=== PATIENT | female | born 1985 | race American Indian/Alaskan Native ===

== ENCOUNTER 2017-07-09 21:49 | Inpatient (IN) | payer MEDICAID ==
--- NOTE | 2017-07-09 22:30 | C.PDOC ---
History Of Present Illness Patient was brought by S after she was caught shop lifting at the mall. Patient currently states she wants to hurt herself but has no plan. Denies any physical complaints. Time Seen by Provider: 07/09/17 22:29 Chief Complaint (Nursing): Psychiatric Evaluation History Per: Patient History/Exam Limitations: no limitations Onset/Duration Of Symptoms: Hrs Current Symptoms Are (Timing): Still Present Suicide/Self Injury Attempted (Context): None Modifying Factor(s): None Severity: None Associated Symptoms: Suicidal Thoughts. denies: Suicidal Plan Involuntary Hold By: None Recent travel outside of the [place]: No Additional History Per: Patient, EMS Past Medical History Reviewed: Historical Data, Nursing Documentation, Vital Signs Vital Signs: Last Vital Signs Temp 98.8 F 07/09/17 22:08 Pulse 90 07/09/17 22:08 Resp 20 07/09/17 22:08 BP 102/57 L 07/09/17 22:08 Pulse Ox 100 07/09/17 23:17 - Medical History PMH: Anxiety, Asthma, Bipolar Disorder, Bronchitis, Depression Surgical History: No Surg Hx Family History: States: No Known Family Hx - Social History Hx Tobacco Use: Yes Hx Alcohol Use: No Hx Substance Use: No - Immunization History Hx Tetanus Toxoid Vaccination: No Hx Influenza Vaccination: Yes Hx Pneumococcal Vaccination: No Review Of Systems Constitutional: Negative for: Fever Eyes: Negative for: Vision Change ENT: Negative for: Throat Pain Cardiovascular: Negative for: Chest Pain Respiratory: Negative for: Shortness of Breath Gastrointestinal: Negative for: Nausea Musculoskeletal: Negative for: Back Pain Skin: Negative for: Rash Neurological: Negative for: Weakness, Numbness Psych: Positive for: Depression, Suicidal ideation Physical Exam - Physical Exam Appears: Non-toxic, No Acute Distress Skin: Warm, Dry Head: Normacephalic Eye(s): bilateral: Normal Inspection Oral Mucosa: Moist Neck: Supple Chest: Symmetrical, No Tenderness Cardiovascular: Rhythm Regular Respiratory: No Rales, No Rhonchi Gastrointestinal/Abdominal: Soft, No Tenderness Back: No CVA Tenderness Extremity: Normal ROM Extremity: Bilateral: Atraumatic Neurological/Psych: Oriented x3, Normal Speech, Normal Cognition Gait: Steady ED Course And Treatment - Laboratory Results Result Diagrams: 07/09/17 22:38 07/09/17 22:38 O2 Sat by Pulse Oximetry: 100 (RA) Pulse Ox Interpretation: Normal Progress Note: Administered Macrobid. Ordered blood work and urinalysis. Crisis notified. Disposition Discussed With Dr.: Jasmeet Caraballo Comment: accepted the pt on his service and took over the care at 12:36 AM Doctor Will See Patient In The: Hospital Counseled Patient/Family Regarding: Studies Performed, Diagnosis - Disposition Disposition: HOSPITALIZED Disposition Time: 22:30 Condition: FAIR Forms: [facility] ([place]i) - POA Present On Arrival: None - Clinical Impression Clinical Impression: Alcohol abuse, Major depression, Cocaine abuse - Scribe Statement The provider has reviewed the documentation as recorded by the Scribe Larisa Gonzalez All medical record entries made by the Scribe were at my direction and personally dictated by me. I have reviewed the chart and agree that the record accurately reflects my personal performance of the history, physical exam, medical decision making, and the department course for this patient. I have also personally directed, reviewed, and agree with the discharge instructions and disposition. Decision To Admit - Pt Status Changed To: Hospital Disposition Of: Inpatient - Admit Certification Admit to Inpatient:: After my assessment, the patient will require hospitalization for at least two midnights. This is because of the severity of symptoms shown, intensity of services needed, and/or the medical risk in this patient being treated as an outpatient. - InPatient: Physician Admission Certification: I certify that this patient requires 2 or more midnights of care for the following reason:: After my assessment, the patient will require hospitalization for at least two midnights. This is because of the severity of symptoms shown, intensity of services needed, and/or the medical risk in this patient being treated as an outpatient. - . Bed Request Type: Psychiatry Admitting Physician: Jasmeet Caraballo Patient Diagnosis: Alcohol abuse, Major depression, Cocaine abuse
[2017-07-09 22:45] LABS: BASO # 0.1 K/uL (0.0-0.2); BASO % 0.7 % (0.0-2.0); EOS # 0.2 K/uL (0.0-0.7); EOS % 2.4 % (0.0-4.0); HEMOGLOBIN 11.7 g/dL (11.0-16.0); LYMPH # 3.2 K/uL (1.0-4.3); LYMPH % 40.8 % (20.0-40.0); MEAN CORPUSCULAR HEMOGLOBIN 27.2 pg (27.0-31.0); MONO # 0.7 K/uL (0.0-0.8); MONO % 8.8 % (0.0-10.0); NEUT # 3.7 K/uL (1.8-7.0); NEUT % 47.3 % (50.0-75.0); RBC 4.32 Mil/uL (3.80-5.20); RED CELL DISTRIBUTION WIDTH 13.4 % (11.5-14.5); WHITE BLOOD COUNT 7.8 K/uL (4.8-10.8)
[2017-07-09 22:49] LABS: HCG,QUALITATIVE URINE NEGATIVE (NEGATIVE)
[2017-07-09 22:55] LABS: SQUAMOUS EPITHIAL 19 /hpf (0-5); URINE BACTERIA FEW (<OCC); URINE BILIRUBIN NEGATIVE (NEGATIVE); URINE BLOOD 1+ (NEGATIVE); URINE CLARITY Hazy (Clear); URINE COLOR Yellow (YELLOW); URINE GLUCOSE (UA) NORMAL (Normal); URINE LEUKOCYTE ESTERASE 3+ Leu/uL (Negative); URINE NITRATE NEGATIVE (NEGATIVE); URINE PROTEIN 1+ mg/dL (NEGATIVE); WBC CLUMPS FEW /hpf
[2017-07-09 22:56] LABS: ALB/GLOB RATIO 1.1 (1.0-2.1); ALBUMIN 3.8 g/dL (3.5-5.0); ALT/SGPT 159 U/L (9-52); AST/SGOT 106 U/L (14-36); BLOOD UREA NITROGEN 17 mg/dL (7-17); GFR AFRICAN-AMERICAN > 60; GFR NON-AFRICAN AMERICAN > 60
[2017-07-09 23:07] LABS: BARBITURATES, UR NEGATIVE (NEGATIVE); PHENCYCLIDINE, UR NEGATIVE (NEGATIVE)
[2017-07-09 23:29] LABS: BENZODIAZEPINES, UR POSITIVE (NEGATIVE); OPIATES, UR POSITIVE (NEGATIVE)
[2017-07-10 02:05] VITALS: BP 103/66; PULSE 75; RESP 18; TEMP 98.3; O2SAT 100
--- NOTE | 2017-07-10 02:32 | PCM.BM ---
<Sami Valerio - Last Filed: 07/10/17 02:29> Treatment Plan Problems - Problems identified on initial assessmt Depression Date Initiated: 07/10/17 Time Initiated: 02:10 Assessment reference: NA Status: Active Suicidal Ideation Date Initiated: 07/10/17 Time Initiated: 02:10 Assessment reference: NA Status: Active Substance Abuse Date Initiated: 07/10/17 Time Initiated: 02:10 Assessment reference: NA Status: Active Treatment assets and liabiliti Patient Assests: cooperative, self-reliant, ADL independent, negotiates basic needs Patient Liabilities: financial problems, poor support system, substance abuse, legal issue - Milieu Protocol Maintain good personal hygiene: daily Encourage regular showers, daily Remind patient to perform daily oral care, daily Assist patient to perform ADL's Maintain personal safety: every shift Educate patient to report safety concerns to staff, every shift Monitor environment for contraband/sharps Medication safety: Monitor for expected outcome, potential side effects: every shift, Assess barriers to learning: every shift, Assess readiness for medication education: every shift <Shekhar Ghosh - Last Filed: 07/11/17 11:00> - Diagnosis (1) Major depression Status: Acute Interventions: 07/11/17 11:01 * Assess/adjust medications daily and /or as needed * See patient on an individual basis 7x/week to assess symptoms of depression * Monitor for side effects & effectiveness of medications * (2) Alcohol abuse Status: Acute Interventions: 07/11/17 11:01 * Assess 7x/week regarding severity of withdrawal * Educate regarding risks, benefits, side effects and alternatives of medications * Use Motivational Interviewing for abstinence * Use CBT for relapse prevention * Medication management for withdrawal symptoms * Encourage medication assisted treatment * (3) Cocaine abuse Status: Acute Interventions: 07/11/17 11:01 * Assess 7x/week regarding severity of withdrawal * Educate regarding risks, benefits, side effects and alternatives of medications * Use Motivational Interviewing for abstinence * Use CBT for relapse prevention * Medication management for withdrawal symptoms * Encourage medication assisted treatment * <Raquel Finley - Last Filed: 07/11/17 11:06> Family Contact Family involvement: Family/SO is involved - Goals for Treatment Patient goals for treatment: "I want to go home." Discharge/Continuing Care - Education Needs Education Needs: Patient Medication, Patient Coping Skills, Patient Placement options, Patient Community resources - Discharge Discharge Criteria: Tolerates medication w/o severe side effects, Reduction of target symptoms Discharge to:: Home, With Family - Treatment Team Participation Discussed with Family/SO: No Was Patient/Family/SO present at Treatment Team Meeting: No
--- NOTE | 2017-07-10 10:25 | PCM.PSYCH ---
Initial Psychiatric Evaluation - Initial Psychiatric Evaluation Type of Admission: Voluntary Legal Status: Capacity Chief Complaint (in patient's own words): I was feeling depressed and suicidal.' History of Present Illness and Precipitating Events: This is a 31-year-old AAF, who currently lives with her mother, came to the ED BIB EMS due to depressed mood and suicidal ideation. Patient reports a long history of abusing heroin and cocaine and drinking. She denies any history of any inpatient psychiatric hospitalization denies any history of follow-up with any psychiatrist. As per the ED patient reported the following: "I don't want to be here anymore;" I'm tired all the time;" All I do is sleep;" For three days, I'm tired;" Pt reported active suicide idx with plan , but refused to disclose details of same. Pt has a prior hx of suicide attempts ; One month ago, Pt lacerated her left wrist with a "piece of glass" (Several old scars were noted on Pt's left wrist). "Last year" Pt made an attempt to od on pills. At this time, Pt had placed an unknown amount of pills in her mouth; However, Pt's mother physically extracted them from Pt's mouth before Pt was able to ingest them; Pt did not identify any specific precipitated to her current suicide idx, simply stating: "Everything;" Nothing's going right;" Patient reports of abusing almost 30 bags of heroin daily, along with some cocaine. She also reports of drinking a few beers daily. She reports depressed mood, feelings of hopelessness and helplessness and worthlessness. She reports poor sleep and poor appetite. She reports withdrawal symptoms from heroin including nausea, vomiting, diarrhea joint pains and abdominal cramps. Past medical history UTI, Asthma Current Medications: Active Medications Generic Name Dose Route Start Last Admin Trade Name Freq PRN Reason Stop Dose Admin Pneumococcal Polyvalent Vaccine 0.5 ml 07/12/17 09:00 Pneumovax 23 Vaccine IM 07/12/17 09:01 .ONCE ONE Past Psychiatric History - Past Psychiatric History Previous Treatment History: None Pertinent Medical Hx (Current Medical&Sleep Prob, Allergies): Allergies Allergy/AdvReac Type Severity Reaction Status Date / Time Penicillins Allergy RASH Verified 07/09/17 22:14 Albuterol HFA [Ventolin HFA 90 mcg/actuation (8 g)] 2 puff [id number] #1 puff Review of Systems - Review of Systems All systems: reviewed and no additional remarkable complaints except - Psychiatric Psychiatric: Anxiety, Depression, Irritability, Suicidal Ideation Mental Status Examination - Personal Presentation Personal Presentation: Looks stated age - Affect Affect: Constricted, Depressed - Motor Activity Motor Activity: Calm - Reliability in Providing Information Reliability in Providing Information: Good - Speech Speech: Organized - Mood Mood: Depressed, Anxious - Formal Thought Process Formal Thought Process: No Impairment - Obsessions/Compulsions Obsessions: No Compulsions: No - Cognitive Functions Orientation: Person, Place, Situation, Time Sensorium: Alert Attention/Concentration: Attentive Abstract Thinking: [place] Estimate of Intelligence: Below average Judgement: Imparied, as evidence by: Poor judgement, Imparied, as evidence by: Lack of insight into illness - Risk Risk: Suicidal, Withdrawal, Diminished functioning - Strength & Assets Inventory Strength & Assets Inventory: Family support DSM 5 DX - DSM 5 DSM 5 Diagnosis: Major depressive disorder recurrent severe without psychotic features Opioid use disorder severe Opioid withdrawal Alcohol use disorder severe Cocaine use disorder severe - Recommended/Plan of Treatment Treatment Recommendations and Plan of Treatment: Major depressive disorder recurrent severe without psychotic features CBT Psychoeducation Supportive therapy, group therapy, individual therapy Paxil 10 mg daily Neurontin 100 mg by mouth 3 times a day Trazodone 50 mg by mouth daily at bedtime Opioid use disorder severe CBT Psychoeducation Supportive therapy, individual therapy Use [place] for abstinence Opioid withdrawal CBT Psychoeducation Supportive therapy, individual therapy Clonidine when necessary Alcohol use disorder severe CBT Psychoeducation Supportive therapy, individual therapy Use [place] for abstinence Ativan 1 mg by mouth every 6 hours when necessary Cocaine use disorder severe CBT Psychoeducation Supportive therapy, individual therapy Use [place] for abstinence UTI Start antibiotic Asthma Continue prescribed medications - Smoking Cessation Smoking Cessation Initiated: No
[2017-07-10] MEDS: Albuterol HFA 90 mcg/actuation (8 g) IH SCH ×2 (14:36→21:03)
[2017-07-10] MEDS ORDERED: Aluminum Hydroxide/Magnesium Hydroxide Susp (30 mL) PO PRN (15:06)
[2017-07-11] MEDS: Albuterol HFA 90 mcg/actuation (8 g) IH SCH (03:05)
--- NOTE | 2017-07-11 09:56 | PCM.PYCHDC ---
Mental Status Examination - Mental Status Examination Orientation: Person, Place, Situation, Time Memory: Intact Mood: Neutral Affect: Constricted Speech: Soft Attention: WNL Concentration: WNL Association: WNL Fund of Knowledge: WNL Formal Thought Process: No Impairment Description of patient's judgement and insight: partially impaired Psychotic Thoughts and Behaviors: denies any AVH Suicidal Ideation: No Current Homicidal Ideation?: No Discharge Summary - Discharge Note Reason for Hospitalization: This is a 31-year-old AAF, who currently lives with her mother, came to the ED BIB EMS due to depressed mood and suicidal ideation. Patient reports a long history of abusing heroin and cocaine and drinking. She denies any history of any inpatient psychiatric hospitalization denies any history of follow-up with any psychiatrist. As per the ED patient reported the following: "I don't want to be here anymore;" I'm tired all the time;" All I do is sleep;" For three days, I'm tired;" Pt reported active suicide idx with plan , but refused to disclose details of same. Pt has a prior hx of suicide attempts ; One month ago, Pt lacerated her left wrist with a "piece of glass" (Several old scars were noted on Pt's left wrist). "Last year" Pt made an attempt to od on pills. At this time, Pt had placed an unknown amount of pills in her mouth; However, Pt's mother physically extracted them from Pt's mouth before Pt was able to ingest them; Pt did not identify any specific precipitated to her current suicide idx, simply stating: "Everything;" Nothing's going right;" Patient reports of abusing almost 30 bags of heroin daily, along with some cocaine. She also reports of drinking a few beers daily. She reports depressed mood, feelings of hopelessness and helplessness and worthlessness. She reports poor sleep and poor appetite. She reports withdrawal symptoms from heroin including nausea, vomiting, diarrhea joint pains and abdominal cramps. Consultations:: List each consultation separately and include: 1. Reason for request. 2. Findings. 3. Follow-up Summary of Hospital Course include:: 1. Description of specific treatment plan utilized for patients during their course of treatmen. 2. Summarize the time- course for resolution of acute symptoms and/or regressed behaviors. 3. Describe issues identified and worked on during hospitalization. 4. Describe medication utilized. 5. Describe medical problems identified and treated. 6. Reassessment of suicide risk Summary of Hospital Course: This is a 31-year-old AAF, who currently lives with her mother, came to the ED BIB EMS due to depressed mood and suicidal ideation. Patient reports a long history of abusing heroin and cocaine and drinking. She denies any history of any inpatient psychiatric hospitalization denies any history of follow-up with any psychiatrist. As per the ED patient reported the following: "I don't want to be here anymore;" I'm tired all the time;" All I do is sleep;" For three days, I'm tired;" Pt reported active suicide idx with plan , but refused to disclose details of same. Pt has a prior hx of suicide attempts ; One month ago, Pt lacerated her left wrist with a "piece of glass" (Several old scars were noted on Pt's left wrist). "Last year" Pt made an attempt to od on pills. At this time, Pt had placed an unknown amount of pills in her mouth; However, Pt's mother physically extracted them from Pt's mouth before Pt was able to ingest them; Pt did not identify any specific precipitated to her current suicide idx, simply stating: "Everything;" Nothing's going right;" Patient reports of abusing almost 30 bags of heroin daily, along with some cocaine. She also reports of drinking a few beers daily. She reports depressed mood, feelings of hopelessness and helplessness and worthlessness. She reports poor sleep and poor appetite. She reports withdrawal symptoms from heroin including nausea, vomiting, diarrhea joint pains and abdominal cramps. Past medical history UTI, Asthma - Final Diagnosis (DSM 5) Condition upon Discharge: FAIR DSM 5: Major depressive disorder recurrent severe without psychotic features Opioid use disorder severe Opioid withdrawal Alcohol use disorder severe Cocaine use disorder severe Disposition: HOME/ ROUTINE Follow-up Treatment Plan: Major depressive disorder recurrent severe without psychotic features CBT Psychoeducation Supportive therapy, group therapy, individual therapy Paxil 10 mg daily Neurontin 100 mg by mouth 3 times a day Trazodone 50 mg by mouth daily at bedtime Opioid use disorder severe CBT Psychoeducation Supportive therapy, individual therapy Use [place] for abstinence Opioid withdrawal CBT Psychoeducation Supportive therapy, individual therapy Clonidine when necessary Alcohol use disorder severe CBT Psychoeducation Supportive therapy, individual therapy Use [place] for abstinence Ativan 1 mg by mouth every 6 hours when necessary Cocaine use disorder severe CBT Psychoeducation Supportive therapy, individual therapy Use [place] for abstinence UTI Start antibiotic Asthma Continue prescribed medications Prescriptions/Medication Reconciliation: Gabapentin [Neurontin] 300 mg PO BID 14 Days cap PARoxetine [Paxil] 10 mg PO DAILY #14 tab traZODone [Desyrel] 50 mg PO HS #14 tab - Smoking Cessation Smoking Cessation Medication prescribed: No - Antipsychotic Medications Pt discharged on 2 or more routine antipsychotic medications: No
[2017-07-11] MEDS ORDERED: Influenza Vaccine 60 mcg/0.5 mL SYR (4YR UP) IM ONE (10:00)
[2017-07-12] MEDS ORDERED: Pneumococcal 23-Valent Vaccine IM ONE (09:00)
== END 2017-07-11 10:15 | disposition home or self-care (01) | DRG 430 ==
LOC: C.ER 21:49 → C.5E 07-10 00:35
DX: F33.2 Major depressive disorder, recurrent severe without psychotic features (principal); F14.20 Cocaine dependence, uncomplicated; F11.23 Opioid dependence with withdrawal; N39.0 Urinary tract infection, site not specified; F10.20 Alcohol dependence, uncomplicated; J45.909 Unspecified asthma, uncomplicated

== ENCOUNTER 2017-11-12 23:38 | Inpatient (IN) | payer MEDICAID ==
--- NOTE | 2017-11-13 00:37 | C.PDOC ---
History Of Present Illness The patient presents to the ED for psychiatric evaluation, stating she is anxious and depressed. Patient reports having thoughts of hurting herself. She denies suicidal plan or homicidal ideation at this time. Time Seen by Provider: 11/13/17 00:37 Chief Complaint (Nursing): Psychiatric Evaluation History Per: Patient History/Exam Limitations: no limitations Onset/Duration Of Symptoms: Hrs Current Symptoms Are (Timing): Still Present Suicide/Self Injury Attempted (Context): None Modifying Factor(s): None Severity: None Pain Scale Rating Of: 0 Associated Symptoms: Anxiety, Depression, Suicidal Thoughts. denies: Suicidal Plan Involuntary Hold By: None Recent travel outside of the [place]: No Additional History Per: Patient Past Medical History Reviewed: Historical Data, Nursing Documentation, Vital Signs Vital Signs: Last Vital Signs Temp 98 F 11/13/17 00:08 Pulse 66 11/13/17 00:08 Resp 16 11/13/17 00:08 BP 115/75 11/13/17 00:08 Pulse Ox 100 11/13/17 02:33 - Medical History PMH: Anxiety, Asthma, Bipolar Disorder, Bronchitis, Depression Denies: Diabetes, Hepatitis, HIV, HTN, Chronic Kidney Disease, Seizures, Sexually Transmitted Disease Surgical History: No Surg Hx Family History: States: Unknown Family Hx - Social History Hx Tobacco Use: Yes Hx Alcohol Use: No Hx Substance Use: Yes - Immunization History Hx Tetanus Toxoid Vaccination: No Hx Influenza Vaccination: No Hx Pneumococcal Vaccination: No Review Of Systems Constitutional: Negative for: Fever, Chills Cardiovascular: Negative for: Chest Pain, Palpitations Respiratory: Negative for: Cough, Shortness of Breath Gastrointestinal: Negative for: Nausea, Vomiting Skin: Negative for: Rash, Lesions, Jaundice, Bruising Neurological: Negative for: Weakness, Numbness Psych: Positive for: Anxiety, Depression, Suicidal ideation (no plan ) Physical Exam - Physical Exam Appears: Non-toxic, No Acute Distress Skin: Warm, Dry Head: Normacephalic Eye(s): bilateral: Normal Inspection Oral Mucosa: Moist Neck: Supple Chest: Symmetrical, No Deformity, No Tenderness Cardiovascular: Rhythm Regular, No Murmur Respiratory: No Rales, No Rhonchi, No Wheezing Extremity: Normal ROM, Capillary Refill (less than 2 seconds ) Neurological/Psych: Oriented x3 Gait: Steady ED Course And Treatment - Laboratory Results Result Diagrams: 11/13/17 01:17 05/17/18 01:17 ECG: Interpreted By Me, Viewed By Me ECG Rhythm: Sinus Rhythm (64), Nonspecific Changes O2 Sat by Pulse Oximetry: 100 (on RA) Pulse Ox Interpretation: Normal - Radiology CXR: Interpreted by Me, Viewed By Me CXR Interpretation: No: Infiltrates, Fracture, Pnemothorax Progress Note: Bloodwork, urinalysis, CXR, and EKG ordered and reviewed. Disposition Counseled Patient/Family Regarding: Studies Performed, Diagnosis - Disposition Disposition Time: 00:37 Condition: FAIR Forms: [email or web address] (Turkmen) - Clinical Impression Clinical Impression: Major depression - Scribe Statement The provider has reviewed the documentation as recorded by the Scribe (Caty Love) Provider Attestation: All medical record entries made by the Scribe were at my direction and personally dictated by me. I have reviewed the chart and agree that the record accurately reflects my personal performance of the history, physical exam, medical decision making, and the department course for this patient. I have also personally directed, reviewed, and agree with the discharge instructions and disposition. Physician Patient Turnover Patient Signed Over To: Janet Huntley Handoff Comments: pending bed availability
[2017-11-13 01:24] LABS: BASO % 0.6 % (0.0-2.0); EOS # 0.2 K/uL (0.0-0.7); HEMOGLOBIN 11.6 g/dL (11.0-16.0); LYMPH % 37.7 % (20.0-40.0); MEAN CELL VOLUME 85.2 fL (81.0-99.0); MEAN CORPUSCULAR HGB CONC 32.8 g/dL (33.0-37.0); MEAN PLATELET VOLUME 9.5 fL (7.2-11.7); MONO # 0.8 K/uL (0.0-0.8); MONO % 9.5 % (0.0-10.0); NEUT % 50.2 % (50.0-75.0); RBC 4.13 Mil/uL (3.80-5.20); RED CELL DISTRIBUTION WIDTH 13.6 % (11.5-14.5)
[2017-11-13 01:35] LABS: HCG,QUALITATIVE URINE NEGATIVE (NEGATIVE)
[2017-11-13 01:46] LABS: ALB/GLOB RATIO 1.1 (1.0-2.1); ALBUMIN 3.7 g/dL (3.5-5.0); ALT/SGPT 40 U/L (9-52); AST/SGOT 39 U/L (14-36); BLOOD UREA NITROGEN 16 mg/dL (7-17); CALCIUM 8.9 mg/dl (8.6-10.4); GFR AFRICAN-AMERICAN > 60; GFR NON-AFRICAN AMERICAN > 60
[2017-11-13 01:57] LABS: BARBITURATES, UR NEGATIVE (NEGATIVE); PHENCYCLIDINE, UR NEGATIVE (NEGATIVE)
[2017-11-13 02:01] LABS: BENZODIAZEPINES, UR POSITIVE (NEGATIVE); OPIATES, UR POSITIVE (NEGATIVE)
[2017-11-13 04:13] LABS: SQUAMOUS EPITHIAL 3 /hpf (0-5); URINE BACTERIA RARE (<OCC); URINE BILIRUBIN NEGATIVE (NEGATIVE); URINE BLOOD NEGATIVE (NEGATIVE); URINE CLARITY Hazy (Clear); URINE COLOR Yellow (YELLOW); URINE GLUCOSE (UA) NORMAL (Normal); URINE LEUKOCYTE ESTERASE TRACE Leu/uL (Negative); URINE PROTEIN 2+ mg/dL (NEGATIVE)
--- NOTE | 2017-11-13 08:09 | RAD ---
HISTORY: psych eval COMPARISON: Chest x-ray 10/14/2015 TECHNIQUE: Chest one view . FINDINGS: LUNGS: No focal consolidation is seen. PLEURA: No pleural effusion is identified. CARDIOVASCULAR: Heart size is within normal limits. OSSEOUS STRUCTURES: No acute fracture identified VISUALIZED UPPER ABDOMEN: Unremarkable. OTHER FINDINGS: None. IMPRESSION: No acute cardiopulmonary process seen.
[2017-11-13 10:49] VITALS: O2SAT 100
[2017-11-13] MEDS ORDERED: Aluminum Hydroxide/Magnesium Hydroxide Susp (30 mL) PO PRN (15:19)
--- NOTE | 2017-11-13 15:32 | PCM.BM ---
<Hetal Forrester - Last Filed: 11/13/17 15:27> Treatment Plan Problems - Problems identified on initial assessmt Depression Date Initiated: 11/13/17 Time Initiated: 15:28 Assessment reference: NA Status: Active Substance Abuse Date Initiated: 11/13/17 Time Initiated: 15:28 Assessment reference: NA Status: Active Treatment assets and liabiliti Patient Assests: cooperative, self-reliant, ADL independent, negotiates basic needs, cognitively intact Patient Liabilities: financial problems, substance abuse (Opiates), medical problems (hx of cysts in buttock) - Milieu Protocol Maintain good personal hygiene: daily Encourage regular showers, daily Remind patient to perform daily oral care, daily Assist patient to perform ADL's (Self) Conduct patient checks and document Observation sheet: Q15 minutes (Self) Maintain personal safety: every shift Educate patient to report safety concerns to staff, every shift Monitor environment for contraband/sharps Medication safety: Monitor for expected outcome, potential side effects: every shift, Assess barriers to learning: every shift, Assess readiness for medication education: every shift <Shekhar Ghosh - Last Filed: 11/18/17 11:10> - Diagnosis (1) Major depression Status: Acute Interventions: 11/18/17 11:10 * Assess/adjust medications daily and /or as needed * See patient on an individual basis 7x/week to assess symptoms of depression * Monitor for side effects & effectiveness of medications * (2) Opioid use disorder, severe, dependence Status: Acute Interventions: 11/18/17 11:11 * Assess 7x/week regarding severity of withdrawal * Educate regarding risks, benefits, side effects and alternatives of medications * Use Motivational Interviewing for abstinence * Use CBT for relapse prevention * Medication management for withdrawal symptoms * Encourage medication assisted treatment * <Chelsea Nicholson - Last Filed: 11/18/17 12:51> Family Contact Family involvement: Family/SO is involved Family contact: Patient agrees to contact, Telephone contact initiated by staff - Goals for Treatment Patient goals for treatment: " I want to go to an IOP program." Discharge/Continuing Care - Education Needs Education Needs: Patient Medication, Patient Diagnosis/Disease Process, Patient Coping Skills, Patient Community resources - Discharge Discharge Criteria: Normal sleep pattern, Ability to care for self, No longer exhibiting s/s of withdrawal, Reduction of target symptoms Discharge to:: With Family - Treatment Team Participation Discussed with Family/SO: No Was Patient/Family/SO present at Treatment Team Meeting: Yes
--- NOTE | 2017-11-14 10:01 | PCM.PSYCH ---
Initial Psychiatric Evaluation - Initial Psychiatric Evaluation Type of Admission: Voluntary Legal Status: Capacity Chief Complaint (in patient's own words): I was feeling depressed and suicidal History of Present Illness and Precipitating Events: This is a 31yo -[place] female who came to the [facility], with depressed mood and Suicidal ideation. Patient was just discharged from [facility]E, almost 3 months ago. As per the patient she stopped taking her medications and she relapsed on heroin and cocaine. Pt reports the following: "I just got scared I was going to hurt myself;" I felt like dying;" Couple of months ago, I cut my wrist (old laceration scars were noted on Pt's left wrist);" I felt like this before when I attempted suicide;" I'm tired of depending on drugs everyday;" Pt has had recent thoughts of suicide for the past "2days", along with feelings of depression; Pt described her recent symptoms of depression as: "horrible", "can' t sleep sometimes", "I'm losing weight", "I eat here and there"; Pt also reported symptoms of anhedonia, which she described as: "bad feeling", "empty"; Pt attributed the above symptoms to her father "not doing good" and her inability to refrain from polysubstance dependence. Pt admits to a daily dependence on heroin, cocaine, and Xanax. Last use of heroin/cocaine was yesterday ("6 or 7 bags" of heroin and "one bottle" of cocaine); Last reported use of Xanax was on 11/11/17 ("2mg"); Pt has been abusing substances since age 26. She also reports withdrawal symptoms including headaches, back pain, sweating and anxiety. She denies any auditory or visual hallucinations or any paranoia. PMH None reported Current Medications: Active Medications Generic Name Dose Route Start Last Admin Trade Name Freq PRN Reason Stop Dose Admin Al Hydrox/Mg Hydrox/Simethicone 30 ml 11/13/17 15:19 Maalox 30 Ml PO TID PRN Indigestion / Heartburn Clonidine HCl 0.1 mg 11/13/17 15:19 Catapres PO Q8 PRN COWS Score More or Equal to 5 Hydroxyzine HCl 25 mg 11/13/17 15:19 Atarax PO Q6 PRN Anxiety Loperamide HCl 2 mg 11/13/17 15:19 Imodium PO Q8 PRN Diarrhea Ondansetron HCl 4 mg 11/13/17 15:19 Zofran Tab PO Q8 PRN Nausea/Vomiting Paroxetine HCl 10 mg 11/14/17 10:00 11/14/17 09:28 Paxil PO 10 mg DAILY NAN Administration Pseudoephedrine HCl 60 mg 11/13/17 15:19 Sudafed Tab PO QID PRN Nasal/Sinus Congestion Trazodone HCl 50 mg 11/13/17 22:00 11/13/17 21:15 Desyrel PO 50 mg HS NAN Administration Past Psychiatric History - Past Psychiatric History Previous Treatment History: Inpatient Pertinent Medical Hx (Current Medical&Sleep Prob, Allergies): Allergies Allergy/AdvReac Type Severity Reaction Status Date / Time Penicillins Allergy RASH Verified 11/13/17 00:14 PARoxetine [Paxil] 10 mg PO DAILY #14 tab 07/11/17 traZODone [Desyrel] 50 mg PO HS #14 tab 07/11/17 Review of Systems - Review of Systems All systems: reviewed and no additional remarkable complaints except - Psychiatric Psychiatric: Anxiety, Irritability, Suicidal Ideation Mental Status Examination - Personal Presentation Personal Presentation: Looks stated age - Affect Affect: Constricted, Depressed - Motor Activity Motor Activity: Calm - Reliability in Providing Information Reliability in Providing Information: Fair - Speech Speech: Disorganized - Mood Mood: Depressed, Anxious - Formal Thought Process Formal Thought Process: No Impairment - Obsessions/Compulsions Obsessions: No Compulsions: No - Cognitive Functions Orientation: Person, Place, Situation, Time Sensorium: Alert Attention/Concentration: Attentive Abstract Thinking: [place] Estimate of Intelligence: Below average Judgement: Imparied, as evidence by: Poor judgement, Imparied, as evidence by: Lack of insight into illness - Risk Risk: Suicidal, Withdrawal, Diminished functioning - Strength & Assets Inventory Strength & Assets Inventory: Intelligence - Limitations Limitations: Living alone DSM 5 DX - DSM 5 DSM 5 Diagnosis: Major depressive disorder recurrent severe without psychotic features Opioid use disorder severe Opioid withdrawal Cocaine use disorder severe Sedative/hypnotic use disorder mild - Recommended/Plan of Treatment Treatment Recommendations and Plan of Treatment: Major depressive disorder recurrent severe without psychotic features -CBT -Psychoeducation -Supportive therapy, group therapy, individual therapy -Paxil 10 mg PO Q Daily -Trazodone 50 mg by mouth daily at bedtime Opioid use disorder severe -CBT -Psychoeducation -Supportive therapy, individual therapy -Use OR for abstinence Opioid withdrawal -CBT -Psychoeducation -Supportive therapy, individual therapy -Clonidine when necessary -Methadone taper Cocaine use disorder severe -CBT -Psychoeducation -Supportive therapy, individual therapy -Use OR for abstinence Sedative/hypnotic use disorder mild -CBT -Psychoeducation -Supportive therapy, individual therapy - Smoking Cessation Smoking Cessation Initiated: No
--- NOTE | 2017-11-14 12:54 | CARD ---
APPROVED REPORT EKG Measurement Heart [id number] <Conclusion> Normal sinus rhythm Normal ECG
--- NOTE | 2017-11-15 15:31 | PCM.PYCHPN ---
Psychiatric Progress Note - Psychiatric Progress Note Patient seen today, length of contact: 15 minutes Patient Chief Complaint: "I want to be discharge" Problems Identified/Issues Discussed: Patient was seen. Chart was reviewed important content noted. Nurse input received. No events overnight. Patient slept well and is eating well. Patient reported that she wants to be discharge because she is feeling better. She denies depressive symptoms. Denies suicidal or homicidal ideations. Patient does not report hallucinations. No delusions elicited. No paranoia elicited. Patient has remained in good clinical and behavioral control. Symptoms are improving, but needs more time to stabilize. DSM 5 Symptoms Update: Major depressive disorder recurrent severe without psychotic features Opioid use disorder severe Opioid withdrawal Cocaine use disorder severe Sedative/hypnotic use disorder mild Medication Change: Yes Medical Record Reviewed: Yes Mental Status Examination - Cognitive Function Orientation: Person, Place, Situation, Time Memory: Intact Attention: WNL Concentration: WNL Association: WNL Fund of Knowledge: WN Decription of patient's judgement and insights: LIMITED/Limited - Mood Mood: Anxious - Affect Affect: Constricted - Speech Speech: Appropriate - Formal Thought Process Formal Thought Process: No Impairment Psychotic Thoughts and Behaviors: denied - Suicidal Ideation Suicidal Ideation: No Plan: denied - Homicidal Ideation Homicidal Ideation: No Plan: denied Goal/Treatment Plan - Goal/Treatment Plan Need for Continued Stay: Discharge may exacerbated symptoms Progress Toward Problem(s) and Goals/Treatment Plan: Continue current treatment as per primary team. Psychoeducation provided regarding diagnosis, treatment, meds benefits, side effects, risk and alternative choices. Pt verbalized understanding and agree with the treatment plan. Estimated Date of D/C: 11/17/17
[2017-11-16 11:08] VITALS: BP 128/92; PULSE 72; RESP 19; TEMP 98.6
--- NOTE | 2017-11-16 13:02 | PCM.PYCHDC ---
Mental Status Examination - Mental Status Examination Orientation: Person, Place, Situation, Time Memory: Intact Mood: Neutral Affect: Broad Speech: Appropriate Attention: WNL Concentration: WNL Association: WNL Fund of Knowledge: WNL Formal Thought Process: No Impairment Description of patient's judgement and insight: fair/fair Psychotic Thoughts and Behaviors: denied Suicidal Ideation: No Current Homicidal Ideation?: No Plan: denied any intent or plan. no access to guns, no parasuicidal gestures, no past suicide attempt. she has good social support from her mother. She wants to live for her 5 year old son. Discharge Summary - Discharge Note Reason for Hospitalization: This is a 31yo -[place] female who came to the [facility], with depressed mood and Suicidal ideation. Patient was just discharged from [facility] 5E, almost 3 months ago. As per the patient she stopped taking her medications and she relapsed on heroin and cocaine. Pt reports the following: "I just got scared I was going to hurt myself;" I felt like dying;" Couple of months ago, I cut my wrist (old laceration scars were noted on Pt's left wrist);" I felt like this before when I attempted suicide;" I'm tired of depending on drugs everyday;" Pt has had recent thoughts of suicide for the past "2days", along with feelings of depression; Pt described her recent symptoms of depression as: "horrible", "can' t sleep sometimes", "I'm losing weight", "I eat here and there"; Pt also reported symptoms of anhedonia, which she described as: "bad feeling", "empty"; Pt attributed the above symptoms to her father "not doing good" and her inability to refrain from polysubstance dependence. Pt admits to a daily dependence on heroin, cocaine, and Xanax. Last use of heroin/cocaine was yesterday ("6 or 7 bags" of heroin and "one bottle" of cocaine); Last reported use of Xanax was on 11/11/17 ("2mg"); Pt has been abusing substances since age 26. She also reports withdrawal symptoms including headaches, back pain, sweating and anxiety. She denies any auditory or visual hallucinations or any paranoia. PMH None reported Consultations:: List each consultation separately and include: 1. Reason for request. 2. Findings. 3. Follow-up Summary of Hospital Course include:: 1. Description of specific treatment plan utilized for patients during their course of treatmen. 2. Summarize the time- course for resolution of acute symptoms and/or regressed behaviors. 3. Describe issues identified and worked on during hospitalization. 4. Describe medication utilized. 5. Describe medical problems identified and treated. 6. Reassessment of suicide risk Summary of Hospital Course: The pt was admitted and started on detox treatment with psychotherapy, support, psychoeducation and medications. DE and CBT techniques were used. The pt was compliant with the treatment. The pt attended groups and activities, as well as milieu therapy. All the risks and benefits of medications were discussed and the patient understood and agreed. The pt improved with the treatment. Pt requested earlier discharge because she has to meet with her son. Pt reported that she never attempted suicide. she has no intent or plan. She had parasuicidal gestures. Risk were discussed with the patient regarding earlier discharge including but not limited to early relapse on heroin, withdrawal symptoms. Pt verbalized understand and stated that she will contact by herself to drug rehab program. She also reported that she is enrolled in NA meeting including IOP for drugs use. She stated that she will contact to the nearest ER or call 911 if there is any worsening of depression or drug relapse. Consent was obtained from the patient to contact her mother. Collateral history was obtained from the patient's mother. The mother reported that her daughter never verbalized suicidal ideation, no past suicide attempt, no parasuicidal gesture, no access to guns. She verbalized that she has a son. Pt's mother reported that her daughter has a good social support.She has no safety concern regarding her daughter. Her mother stated that her daughter needs to attend a drug rehab after discharge. Pt appreciate the treatment and care which was provided to him. At the time of d/c pt denied any depressive symptoms, manic symptoms. He denied any SI, HI, intent or plan. Pt denied any perceptual disturbances. He had behavioral issues. Psycho-education was provided to the pt to be compliant with the medication, treatment plan and f/u plan after the discharge. After care discussed with the patient. Medication at discharge Paxil 10 mg po daily and trazodone 50 mg po HS prn for insomnia Diagnosis: MDD, Recurrent Opioid use disorder, severe, dependence, Opioid withdrawal symptoms. Time spend 30 minutes - Final Diagnosis (DSM 5) Condition upon Discharge: FAIR Disposition: HOME/ ROUTINE Follow-up Treatment Plan: Continue current treatment as per primary team. Psychoeducation provided regarding diagnosis, treatment, meds benefits, side effects, risk and alternative choices. Pt verbalized understanding and agree with the treatment plan. Prescriptions/Medication Reconciliation: PARoxetine [Paxil] 10 mg PO DAILY #30 tab traZODone [Desyrel] 50 mg PO HS PRN #30 tab PRN Reason: Insomnia - Smoking Cessation Smoking Cessation Medication prescribed: No - Antipsychotic Medications Pt discharged on 2 or more routine antipsychotic medications: No
== END 2017-11-16 14:40 | disposition home or self-care (01) | DRG 430 ==
LOC: C.ER 23:38 → C.9E 11-13 06:46 → C.5E 11-13 11:57
PROVIDERS: ADMIT Psychiatry & Neurology Psychiatry; ATTEND Psychiatry & Neurology Psychiatry
PROC: GZ3ZZZZ Medication Management (ICD-10-PCS; principal; 2017-11-13)
PROC: GZHZZZZ Group Psychotherapy (ICD-10-PCS; 2017-11-13)
PROC: GZ56ZZZ Individual Psychotherapy, Supportive (ICD-10-PCS; 2017-11-13)
PROC: HZ83ZZZ Medication Management for Substance Abuse Treatment, Antabuse (ICD-10-PCS; 2017-11-13)
PROC: HZ2ZZZZ Detoxification Services for Substance Abuse Treatment (ICD-10-PCS; 2017-11-13)
PROC: HZ59ZZZ Individual Psychotherapy for Substance Abuse Treatment, Supportive (ICD-10-PCS; 2017-11-13)
PROC: HZ46ZZZ Group Counseling for Substance Abuse Treatment, Psychoeducation (ICD-10-PCS; 2017-11-13)
DX: F33.2 Major depressive disorder, recurrent severe without psychotic features (principal); F11.23 Opioid dependence with withdrawal; F14.20 Cocaine dependence, uncomplicated; F13.10 Sedative, hypnotic or anxiolytic abuse, uncomplicated; R45.851 Suicidal ideations; F31.9 Bipolar disorder, unspecified; F41.9 Anxiety disorder, unspecified; G47.00 Insomnia, unspecified; J45.909 Unspecified asthma, uncomplicated; F17.210 Nicotine dependence, cigarettes, uncomplicated; Z91.5 Personal history of self-harm; Z88.0 Allergy status to penicillin

== ENCOUNTER 2017-12-17 14:57 | Emergency (ER) | payer OTHER, MEDICAID ==
[2017-12-17 15:33] VITALS: BP 117/79; PULSE 88; RESP 20; TEMP 98.9; O2SAT 98
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
== END 2017-12-17 16:40 | disposition left against medical advice (07) ==
LOC: C.ER 14:57
DX: T14.8XXA Other injury of unspecified body region, initial encounter (principal); V09.9XXA Pedestrian injured in unspecified transport accident, initial encounter

== ENCOUNTER 2018-03-14 09:28 | Inpatient (IN) | payer MEDICAID, OTHER ==
[2018-03-14 09:39] VITALS: BMI 20.9
--- NOTE | 2018-03-14 09:53 | C.PDOC ---
History Of Present Illness 32 yo female w/PMHx of heroin and benzo dependance come in request detox. Pt admits, last dose was last night. Otherwise, pt denies suicidal or homocidal ideation, denies headache, dizziness , sz ds, CP, SOB, dyspnea, palpitation, abd. pain, V/D, back pain, UTI sx, denies recent trauma or injury. Ambulate to Ed for evaluation, not in any apparent distress. Time Seen by Provider: 03/14/18 09:38 Chief Complaint (Nursing): Substance Abuse History Per: Patient Past Medical History Reviewed: Historical Data, Nursing Documentation, Vital Signs Vital Signs: Last Vital Signs Temp 98.5 F 03/14/18 09:39 Pulse 91 H 03/14/18 09:39 Resp 20 03/14/18 09:39 BP 125/82 03/14/18 09:39 Pulse Ox 98 03/14/18 11:38 - Medical History PMH: Anxiety, Bipolar Disorder, Depression Denies: Asthma, Bronchitis, Diabetes, Hepatitis, HIV, HTN, Chronic Kidney Disease, Seizures, Sexually Transmitted Disease - [facility] Procedures DETOXIFICATION SERVICES FOR SUBSTANCE ABUSE TREATMENT (11/13/17) GROUP CONE RUNNER FOR SUBSTANCE ABUSE TREATMENT, PSYCHOEDUCATION (11/13/17) GROUP PSYCHOTHERAPY (11/13/17) INDIV PSYCHOTHERAPY FOR SUBSTANCE ABUSE TREATMENT, SUPPORT (11/13/17) INDIVIDUAL PSYCHOTHERAPY, SUPPORTIVE (11/13/17) MEDICATION MANAGEMENT (11/13/17) MEDS MGMT FOR SUBSTANCE ABUSE TREATMENT, ANTABUSE (11/13/17) Family History: States: Unknown Family Hx - Social History Hx Tobacco Use: Yes Hx Alcohol Use: No Hx Substance Use: Yes - Immunization History Hx Tetanus Toxoid Vaccination: No Hx Influenza Vaccination: No Hx Pneumococcal Vaccination: No Review Of Systems Except As Marked, All Systems Reviewed And Found Negative. Constitutional: Negative for: Fever, Chills ENT: Negative for: Throat Pain Cardiovascular: Negative for: Chest Pain, Palpitations, Orthopnea, Edema, Light Headedness Respiratory: Negative for: Cough, Shortness of Breath Gastrointestinal: Negative for: Nausea, Vomiting, Abdominal Pain, Diarrhea Genitourinary: Negative for: Dysuria, Frequency, Incontinence Musculoskeletal: Negative for: Neck Pain, Back Pain Neurological: Negative for: Weakness, Numbness, Altered Mental Status, Headache , Dizziness Physical Exam - Physical Exam Appears: Well, Non-toxic, No Acute Distress Skin: Normal Color, Warm, Dry, No Rash Head: Atraumatic, Normacephalic Eye(s): bilateral: PERRL Nose: No Flaring, No Discharge Oral Mucosa: Moist, No Drooling Tongue: Normal Appearing Lips: Normal Appearing Throat: No Erythema Neck: Trachea Midline, No Midline Cervical Tenderness, No Paracervical Tenderness, No Step Off Deformity, Supple Cardiovascular: Rhythm Regular, No Murmur, No JVD Respiratory: No Decreased Breath Sounds, No Accessory Muscle Use, No Stridor, No Wheezing Gastrointestinal/Abdominal: Soft, No Tenderness, No Distention, No Guarding Back: No CVA Tenderness Extremity: Normal ROM, No Deformity, No Swelling Neurological/Psych: Oriented x3, Normal Speech, Normal Motor, Normal Sensation, Normal Reflexes ED Course And Treatment - Laboratory Results Result Diagrams: 03/14/18 10:00 03/14/18 10:00 Lab Interpretation: No Acute Changes O2 Sat by Pulse Oximetry: 98 Pulse Ox Interpretation: Normal Progress Note: Pt remained stable during the ED evaluation. Afebrile, hemodynamicaly stable. Neurologicaly intact. Blood work review, appears normal. Pt is medically cleared for PES eval. After pt was eval by PES, case discussed with [id number] and admission arranged to detox floor with Dx: Opioid/benzo dependance, acute. Disposition - Disposition Disposition: HOSPITALIZED Disposition Time: 11:38 Condition: STABLE Forms: [facility] (Zambian) - Clinical Impression Clinical Impression: Opioid dependence
[2018-03-14 10:14] LABS: BASO % 0.6 % (0.0-2.0); EOS # 0.1 K/uL (0.0-0.7); EOS % 2.7 % (0.0-4.0); HEMOGLOBIN 11.2 g/dL (11.0-16.0); LYMPH # 2.5 K/uL (1.0-4.3); LYMPH % 47.8 % (20.0-40.0); MEAN CELL VOLUME 85.3 fL (81.0-99.0); MEAN CORPUSCULAR HEMOGLOBIN 27.9 pg (27.0-31.0); MEAN CORPUSCULAR HGB CONC 32.7 g/dL (33.0-37.0); MEAN PLATELET VOLUME 8.5 fL (7.2-11.7); MONO # 0.7 K/uL (0.0-0.8); MONO % 12.7 % (0.0-10.0); NEUT # 1.9 K/uL (1.8-7.0); NEUT % 36.2 % (50.0-75.0); NRBC % 0.1 % (0.0-2.0); RBC 4.02 Mil/uL (3.80-5.20); RED CELL DISTRIBUTION WIDTH 13.8 % (11.5-14.5); WHITE BLOOD COUNT 5.2 K/uL (4.8-10.8)
[2018-03-14 10:20] LABS: ALB/GLOB RATIO 1.3 (1.0-2.1); ALBUMIN 4.2 g/dL (3.5-5.0); ALT/SGPT 68 U/L (9-52); AST/SGOT 41 U/L (14-36); BLOOD UREA NITROGEN 17 mg/dL (7-17); CALCIUM 9.2 mg/dl (8.6-10.4); GFR NON-AFRICAN AMERICAN > 60
[2018-03-14 10:26] LABS: HCG,QUALITATIVE URINE NEGATIVE (NEGATIVE); SQUAMOUS EPITHIAL 10 /hpf (0-5); URINE BILIRUBIN NEGATIVE (NEGATIVE); URINE BLOOD NEGATIVE (NEGATIVE); URINE CLARITY Hazy (Clear); URINE COLOR Yellow (YELLOW); URINE GLUCOSE (UA) NORMAL (Normal); URINE LEUKOCYTE ESTERASE NEG Leu/uL (Negative); URINE PROTEIN NEGATIVE (NEGATIVE)
[2018-03-14 10:49] LABS: BARBITURATES, UR NEGATIVE (NEGATIVE); PHENCYCLIDINE, UR NEGATIVE (NEGATIVE)
[2018-03-14 11:11] LABS: BENZODIAZEPINES, UR POSITIVE (NEGATIVE); OPIATES, UR POSITIVE (NEGATIVE)
--- NOTE | 2018-03-14 13:39 | PCM.BM ---
<Nusrat Campbell - Last Filed: 03/14/18 13:34> Treatment Plan Problems - Problems identified on initial assessmt Potential for opiate withdrawal Date Initiated: 03/14/18 Assessment reference: NA Status: Active Treatment assets and liabiliti Patient Assests: cooperative, insightful, self-reliant, ADL independent, negotiates basic needs, cognitively intact Patient Liabilities: relationship conflicts, substance abuse - Milieu Protocol Maintain good personal hygiene: daily Encourage regular showers, daily Remind patient to perform daily oral care, daily Assist patient to perform ADL's, every shift Encourage regular showers, every shift Remind patient to perform daily oral care, every shift Assist patient to perform ADL's Maintain personal safety: daily Educate patient to report safety concerns to staff, daily Monitor environment for contraband/sharps, every shift Educate patient to report safety concerns to staff, every shift Monitor environment for contraband/sharps Medication safety: Monitor for expected outcome, potential side effects: daily, every shift, Assess barriers to learning: daily, every shift, Assess readiness for medication education: daily, every shift <Juaquin Conner - Last Filed: 03/14/18 15:08> - Diagnosis (1) Sedative, hypnotic or anxiolytic use disorder, severe, dependence Status: Acute Interventions: 03/14/18 15:09 * Assess 7x/week regarding severity of withdrawal * Educate regarding risks, benefits, side effects and alternatives of medications * Use Motivational Interviewing for abstinence * Use CBT for relapse prevention * Medication management for withdrawal symptoms * Encourage medication assisted treatment * (2) PTSD (post-traumatic stress disorder) Status: Acute Interventions: 03/14/18 15:09 * Assess/adjust medications daily and /or as needed * See patient on an individual basis 7x/week to assess symptoms of anxiety * Educate patient regarding benefits, side effects and risks of prescribed medications * <Akosua Yanez - Last Filed: 03/16/18 13:47> Family Contact Family involvement: Famliy/SO not involved - Goals for Treatment Patient goals for treatment: Complete detox and apply for short-term rehab program. Discharge/Continuing Care - Education Needs Education Needs: Patient Medication, Patient Diagnosis/Disease Process, Patient Coping Skills, Patient Anger Management skills, Patient Placement options, Patient Community resources - Discharge Discharge Criteria: No longer exhibiting s/s of withdrawal, Reduction of target symptoms Discharge to:: Substance Abuse Rehab - Treatment Team Participation Patient/Family/SO Statement: 03/16/18 13:47 "I need to go inpatient..." Discussed with Family/SO: No Was Patient/Family/SO present at Treatment Team Meeting: Yes
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
[2018-03-14] MEDS: Multiple Vitamins Tab PO SCH (14:26)
[2018-03-15] MEDS: Methadone 40 mg Tab PO SCH (09:15)
--- NOTE | 2018-03-15 09:27 | PCM.PYCHPN ---
Psychiatric Progress Note - Psychiatric Progress Note Patient seen today, length of contact: 15 min Patient Chief Complaint: I am still withdrawing.' Medication Change: Yes Medical Record Reviewed: Yes Mental Status Examination - Cognitive Function Orientation: Person, Place, Situation, Time Memory: Intact Attention: WNL Concentration: Poor Association: WNL Fund of Knowledge: Poor - Mood Mood: Depressed, Anxious - Affect Affect: Constricted - Speech Speech: Soft - Formal Thought Process Formal Thought Process: No Impairment - Suicidal Ideation Suicidal Ideation: No - Homicidal Ideation Homicidal Ideation: No Goal/Treatment Plan - Goal/Treatment Plan Need for Continued Stay: Severe depression anxiety, Severe functional impairment Progress Toward Problem(s) and Goals/Treatment Plan: Sedative, hypnotic or anxiolytic withdrawal Sedative, hypnotic or anxiolytic use disorder, severe Opioid use disorder, severe, on maintenance Tobacco use disorder, mild PTSD Panic d/o Rule out JERRY Rule out depression Taper with librium Continue Methadone 55 mg gabapenitn for augmantation, anxiety Lexapro for panic d/o Inderal for anxiety As needed medications All risks, benefits and alternatives of the meds discussed, and the pt agreed and understood. Attend groups and activities Supportive therapy and psychoeducation [place] for abstinence CBT for relapse prevention Encourage MAT Refer to rehab or IOP, and self-help groups Smoking cessation with [place] Nicotine patch if needed
[2018-03-15] MEDS: Multiple Vitamins Tab PO SCH (10:06)
[2018-03-16] MEDS: Methadone 40 mg Tab PO SCH (09:26)
[2018-03-16] MEDS: Multiple Vitamins Tab PO SCH (09:27)
--- NOTE | 2018-03-16 16:32 | PCM.PYCHPN ---
Psychiatric Progress Note - Psychiatric Progress Note Patient seen today, length of contact: 17 min Patient Chief Complaint: "I am still withdrawing" Problems Identified/Issues Discussed: I am still having withdrawals The pt is seen, chart reviewed, case discussed with staff. The pt is compliant with medications and reports no side-effects. Pt improving slowly, still complaining of withdrawal symptoms such as yawning, chills, and trouble sleeping. She also claims she never benefitted from librium and asked for klonopin detox - risks discussed and meds switched However he BP is low and it complicates her taper Support given, psycho-education provided. After care discussed. She will return to [facility] Medication Change: Yes (detox changes daily) Medical Record Reviewed: Yes Mental Status Examination - Cognitive Function Orientation: Person, Place, Situation, Time Memory: Intact Attention: WNL Concentration: Poor Association: WNL Fund of Knowledge: Poor - Mood Mood: Depressed, Anxious - Affect Affect: Constricted - Speech Speech: Soft - Formal Thought Process Formal Thought Process: No Impairment - Suicidal Ideation Suicidal Ideation: No - Homicidal Ideation Homicidal Ideation: No Goal/Treatment Plan - Goal/Treatment Plan Need for Continued Stay: Severe depression anxiety, Severe functional impairment Progress Toward Problem(s) and Goals/Treatment Plan: Taper with klonopin now Continue Methadone 55 mg gabapenitn for augmantation, anxiety Lexapro for panic d/o Inderal for anxiety As needed medications All risks, benefits and alternatives of the meds discussed, and the pt agreed and understood. Attend groups and activities Supportive therapy and psychoeducation [place] for abstinence CBT for relapse prevention Encourage MAT Refer to rehab or IOP, and self-help groups Smoking cessation with [place] Nicotine patch if needed Estimated Date of D/C: 03/18/18
[2018-03-17] MEDS: Multiple Vitamins Tab PO SCH (09:11)
[2018-03-17] MEDS: Methadone 40 mg Tab PO SCH (09:12)
--- NOTE | 2018-03-17 14:41 | PCM.PYCHPN ---
Psychiatric Progress Note - Psychiatric Progress Note Patient seen today, length of contact: 17 min Patient Chief Complaint: "I am still withdrawing" Problems Identified/Issues Discussed: I am still having withdrawals The pt is seen, chart reviewed, case discussed with staff. The pt is compliant with medications and reports no side-effects. Pt improving slowly, still complaining of withdrawal symptoms such as yawning, chills, and trouble sleeping. She also claims she never benefitted from librium and asked for klonopin detox - risks discussed and meds switched However he BP is low and it complicates her taper Support given, psycho-education provided. After care discussed. She will return to [facility] Medication Change: Yes (detox changes daily) Medical Record Reviewed: Yes Mental Status Examination - Cognitive Function Orientation: Person, Place, Situation, Time Memory: Intact Attention: WNL Concentration: Poor Association: WNL Fund of Knowledge: Poor - Mood Mood: Depressed, Anxious - Affect Affect: Constricted - Speech Speech: Soft - Formal Thought Process Formal Thought Process: No Impairment - Suicidal Ideation Suicidal Ideation: No - Homicidal Ideation Homicidal Ideation: No Goal/Treatment Plan - Goal/Treatment Plan Need for Continued Stay: Severe depression anxiety, Severe functional impairment Progress Toward Problem(s) and Goals/Treatment Plan: Taper with klonopin now Continue Methadone 55 mg gabapenitn for augmantation, anxiety Lexapro for panic d/o Inderal for anxiety As needed medications All risks, benefits and alternatives of the meds discussed, and the pt agreed and understood. Attend groups and activities Supportive therapy and psychoeducation [place] for abstinence CBT for relapse prevention Encourage MAT Refer to rehab or IOP, and self-help groups Smoking cessation with [place] Nicotine patch if needed Estimated Date of D/C: 03/18/18
[2018-03-18] MEDS: Multiple Vitamins Tab PO SCH (09:34)
[2018-03-18] MEDS: Methadone 40 mg Tab PO SCH (09:52)
--- NOTE | 2018-03-18 14:17 | PCM.PYCHPN ---
Psychiatric Progress Note - Psychiatric Progress Note Patient seen today, length of contact: 16 min Patient Chief Complaint: "I am still withdrawing" Problems Identified/Issues Discussed: I am still having withdrawals The pt is seen, chart reviewed, case discussed with staff. The pt is compliant with medications and reports no side-effects. Pt improving slowly, still complaining of withdrawal symptoms such as yawning, chills, and trouble sleeping. She also claims she never benefitted from librium and asked for klonopin detox - risks discussed and meds switched However he BP is low and it complicates her taper Support given, psycho-education provided. After care discussed. She will return to [facility] Medication Change: Yes (detox changes daily) Medical Record Reviewed: Yes Mental Status Examination - Cognitive Function Orientation: Person, Place, Situation, Time Memory: Intact Attention: WNL Concentration: Poor Association: WNL Fund of Knowledge: Poor - Mood Mood: Depressed, Anxious - Affect Affect: Constricted - Speech Speech: Soft - Formal Thought Process Formal Thought Process: No Impairment - Suicidal Ideation Suicidal Ideation: No - Homicidal Ideation Homicidal Ideation: No Goal/Treatment Plan - Goal/Treatment Plan Need for Continued Stay: Severe depression anxiety, Severe functional impairment Progress Toward Problem(s) and Goals/Treatment Plan: Taper with klonopin now Continue Methadone 55 mg gabapenitn for augmantation, anxiety Lexapro for panic d/o Inderal for anxiety As needed medications All risks, benefits and alternatives of the meds discussed, and the pt agreed and understood. Attend groups and activities Supportive therapy and psychoeducation [place] for abstinence CBT for relapse prevention Encourage MAT Refer to rehab or IOP, and self-help groups Smoking cessation with [place] Nicotine patch if needed Estimated Date of D/C: 03/18/18
[2018-03-18 17:26] VITALS: RESP 18
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
[2018-03-19] MEDS ORDERED: Methadone 40 mg Tab PO SCH (07:56)
[2018-03-19] MEDS ORDERED: Methadone 40 mg Tab PO ONE (08:08)
[2018-03-19 08:23] VITALS: BP 100/68; PULSE 101; TEMP 98.7; O2SAT 99
== END 2018-03-19 08:54 | disposition home or self-care (01) | DRG 745 ==
LOC: C.ER 09:28 → C.7D 11:38
PROVIDERS: ADMIT Psychiatry & Neurology Psychiatry; ATTEND Psychiatry & Neurology Psychiatry
PROC: HZ2ZZZZ Detoxification Services for Substance Abuse Treatment (ICD-10-PCS; principal; 2018-03-14)
PROC: HZ52ZZZ Individual Psychotherapy for Substance Abuse Treatment, Cognitive-Behavioral (ICD-10-PCS; 2018-03-14)
PROC: HZ59ZZZ Individual Psychotherapy for Substance Abuse Treatment, Supportive (ICD-10-PCS; 2018-03-14)
PROC: HZ56ZZZ Individual Psychotherapy for Substance Abuse Treatment, Psychoeducation (ICD-10-PCS; 2018-03-14)
PROC: HZ42ZZZ Group Counseling for Substance Abuse Treatment, Cognitive-Behavioral (ICD-10-PCS; 2018-03-14)
PROC: HZ46ZZZ Group Counseling for Substance Abuse Treatment, Psychoeducation (ICD-10-PCS; 2018-03-14)
PROC: GZHZZZZ Group Psychotherapy (ICD-10-PCS; 2018-03-14)
PROC: GZ58ZZZ Individual Psychotherapy, Cognitive-Behavioral (ICD-10-PCS; 2018-03-14)
PROC: GZ56ZZZ Individual Psychotherapy, Supportive (ICD-10-PCS; 2018-03-14)
DX: F13.230 Sedative, hypnotic or anxiolytic dependence with withdrawal, uncomplicated (principal); F11.20 Opioid dependence, uncomplicated; F31.9 Bipolar disorder, unspecified; F43.10 Post-traumatic stress disorder, unspecified; G40.909 Epilepsy, unspecified, not intractable, without status epilepticus; F17.210 Nicotine dependence, cigarettes, uncomplicated; F41.1 Generalized anxiety disorder; F41.0 Panic disorder [episodic paroxysmal anxiety]

== ENCOUNTER 2018-04-05 17:32 | Emergency (ER) | payer MEDICAID ==
[2018-04-05 17:32] VITALS: BMI 20.9
[2018-04-05 17:44] VITALS: O2SAT 100
[2018-04-05] MEDS ORDERED: Sodium Chloride 0.9% 1,000 ML IV STA (18:12)
[2018-04-05 18:44] LABS: HCG,QUALITATIVE URINE NEGATIVE (NEGATIVE)
[2018-04-05 18:48] LABS: BASO % 0.7 % (0.0-2.0); EOS # 0.1 K/uL (0.0-0.7); EOS % 2.5 % (0.0-4.0); HEMOGLOBIN 10.4 g/dL (11.0-16.0); LYMPH # 2.5 K/uL (1.0-4.3); LYMPH % 44.8 % (20.0-40.0); MEAN CELL VOLUME 85.1 fL (81.0-99.0); MEAN CORPUSCULAR HEMOGLOBIN 27.9 pg (27.0-31.0); MEAN CORPUSCULAR HGB CONC 32.8 g/dL (33.0-37.0); MEAN PLATELET VOLUME 8.5 fL (7.2-11.7); MONO # 0.6 K/uL (0.0-0.8); MONO % 11.1 % (0.0-10.0); NEUT # 2.3 K/uL (1.8-7.0); NEUT % 40.9 % (50.0-75.0); NRBC % 0.1 % (0.0-2.0); RBC 3.71 Mil/uL (3.80-5.20); SQUAMOUS EPITHIAL 2 /hpf (0-5); URINE BACTERIA RARE (<OCC); URINE BILIRUBIN NEGATIVE (NEGATIVE); URINE BLOOD NEGATIVE (NEGATIVE); URINE CLARITY Clear (Clear); URINE COLOR Straw (YELLOW); URINE GLUCOSE (UA) NORMAL (Normal); URINE LEUKOCYTE ESTERASE NEG Leu/uL (Negative); URINE PROTEIN NEGATIVE (NEGATIVE); WHITE BLOOD COUNT 5.5 K/uL (4.8-10.8)
[2018-04-05 18:51] LABS: INR 1.1; PROTHROMBIN TIME 11.5 SECONDS (9.7-12.2)
[2018-04-05 18:52] LABS: PARTIAL THROMBOPLASTIN TIME 37 SECONDS (21-34)
[2018-04-05 18:54] LABS: D DIMER < 200 ng/mlDDU (0-243)
[2018-04-05 18:55] LABS: ALB/GLOB RATIO 1.1 (1.0-2.1); ALBUMIN 3.3 g/dL (3.5-5.0); ALT/SGPT 165 U/L (9-52); AST/SGOT 96 U/L (14-36); BLOOD UREA NITROGEN 8 mg/dL (7-17); CALCIUM 8.7 mg/dl (8.6-10.4); GFR NON-AFRICAN AMERICAN > 60
[2018-04-05 19:00] LABS: BARBITURATES, UR NEGATIVE (NEGATIVE); PHENCYCLIDINE, UR NEGATIVE (NEGATIVE)
[2018-04-05 19:01] LABS: BENZODIAZEPINES, UR POSITIVE (NEGATIVE); OPIATES, UR POSITIVE (NEGATIVE)
--- NOTE | 2018-04-05 19:06 | C.PDOC ---
History Of Present Illness 32-year-old female, presents to the emergency department with complaints of swelling of the right ankle, and face since this morning. Patient states she is taking psychiatric medications and might be allergic. Patient started taking Hydroxyzine two weeks ago. She denies any shortness of breath, rash, nausea/vomiting, difficulty swallowing or any other associated symptoms. No other complaints at this time. Time Seen by Provider: 04/05/18 17:55 Chief Complaint (Nursing): Lower Extremity Problem/Injury History Per: Patient History/Exam Limitations: no limitations Current Symptoms Are (Timing): Still Present Past Medical History Reviewed: Historical Data, Nursing Documentation, Vital Signs Vital Signs: Last Vital Signs Temp 99.6 F 04/05/18 17:40 Pulse 102 H 04/05/18 17:40 Resp 18 04/05/18 17:40 BP 138/93 H 04/05/18 17:40 Pulse Ox 100 04/05/18 17:40 - Medical History PMH: Anxiety, Bipolar Disorder, Depression Denies: Asthma, Bronchitis, Diabetes, Hepatitis, HIV, HTN, Chronic Kidney Disease, Seizures, Sexually Transmitted Disease - [facility] Procedures DETOXIFICATION SERVICES FOR SUBSTANCE ABUSE TREATMENT (03/14/18) GROUP SHIFT PRODUCTION SUPERVISOR FOR SUBSTANCE ABUSE TREATMENT, PSYCHOEDUCATION (03/14/18) GROUP SHIFT PRODUCTION SUPERVISOR FOR SUBSTANCE ABUSE, COGNITIVE BEHAVIORAL (03/14/18) GROUP PSYCHOTHERAPY (03/14/18) INDIV PSYCHOTHERAPY FOR SUBSTANCE ABUSE TREATMENT, SUPPORT (03/14/18) INDIV PSYCHOTHERAPY FOR SUBSTANCE ABUSE, COGNITIV BEHAVIORAL (03/14/18) INDIV PSYCHOTHERAPY FOR SUBSTANCE ABUSE, PSYCHOEDUCATION (03/14/18) INDIVIDUAL PSYCHOTHERAPY, COGNITIVE-BEHAVIORAL (03/14/18) INDIVIDUAL PSYCHOTHERAPY, SUPPORTIVE (03/14/18) MEDICATION MANAGEMENT (11/13/17) MEDS MGMT FOR SUBSTANCE ABUSE TREATMENT, ANTABUSE (11/13/17) Family History: States: No Known Family Hx - Social History Hx Tobacco Use: Yes Hx Alcohol Use: No Hx Substance Use: Yes - Immunization History Hx Tetanus Toxoid Vaccination: No Hx Influenza Vaccination: No Hx Pneumococcal Vaccination: No Review Of Systems Constitutional: Negative for: Fever ENT: Negative for: Throat Swelling Respiratory: Negative for: Shortness of Breath Gastrointestinal: Negative for: Nausea, Vomiting Musculoskeletal: Positive for: Other (swelling of ankle) Neurological: Negative for: Weakness, Numbness Physical Exam - Physical Exam Appears: Non-toxic, No Acute Distress Skin: Warm, Dry, No Rash Head: Atraumatic, Normacephalic Eye(s): bilateral: Normal Inspection, PERRL, EOMI Nose: Normal Oral Mucosa: Moist Lips: Normal Appearing Neck: Normal ROM Cardiovascular: Rhythm Regular, No Murmur Respiratory: Normal Breath Sounds, No Accessory Muscle Use Back: Normal Inspection Extremity: No Deformity, Swelling (right ankle) Neurological/Psych: Oriented x3, Normal Speech ED Course And Treatment - Laboratory Results Result Diagrams: 04/05/18 18:36 04/05/18 18:36 O2 Sat by Pulse Oximetry: 100 Pulse Ox Interpretation: Normal (RA) Progress Note: Labs sent including Ddimer and came back negative. Right ankle xray - neg, Hola wrap applied, patient was d/c home with PMD/clinic follow up. Disposition - Disposition Referrals: [facility] [Outside] Disposition: HOME/ ROUTINE Disposition Time: 19:27 Condition: STABLE Additional Instructions: Follow up with your PMD/Clinic within 1-2 days. Return to ED if feel worse. Instructions: Swelling Forms: Familytic (Irish) - Clinical Impression Clinical Impression: Ankle swelling - Scribe Statement The provider has reviewed the documentation as recorded by the Scribe (Kathy Lenz) All medical record entries made by the Scribe were at my direction and personally dictated by me. I have reviewed the chart and agree that the record accurately reflects my personal performance of the history, physical exam, medical decision making, and the department course for this patient. I have also personally directed, reviewed, and agree with the discharge instructions and disposition.
[2018-04-05 19:20] VITALS: BP 117/74; PULSE 88; RESP 16; TEMP 98.6
--- NOTE | 2018-04-06 08:54 | RAD ---
Date of service: 04/05/2018 PROCEDURE: Right Ankle Radiographs. HISTORY: Swelling COMPARISON: None FINDINGS: BONES: Bone alignment and mineralization are normal. There is no acute displaced fracture or bone destruction. JOINTS: Normal. No osteoarthritis. Ankle mortise maintained. Talar dome intact SOFT TISSUES: There is severe periarticular soft tissue swelling. OTHER FINDINGS: None. IMPRESSION: No acute fracture or dislocation. Severe periarticular soft tissue swelling.
== END 2018-04-05 19:50 | disposition home or self-care (01) ==
LOC: C.ER 17:32
DX: M79.89 Other specified soft tissue disorders (principal); F31.9 Bipolar disorder, unspecified; F41.9 Anxiety disorder, unspecified
CPT/HCPCS: 73610; 80053; 80324; 80345; 80346; 80349; 80353; 80358; 80361; 81001; 83992; 84703; 85025; 85378; 85610; 85730; 99284; J7030

== ENCOUNTER 2018-07-17 10:44 | Inpatient (IN) | payer MEDICAID ==
[2018-07-17 10:44] VITALS: BMI 20.9
[2018-07-17 11:56] LABS: BASO # 0.1 K/uL (0.0-0.2); BASO % 0.8 % (0.0-2.0); EOS % 0.6 % (0.0-4.0); HEMOGLOBIN 11.9 g/dL (11.0-16.0); LYMPH # 1.8 K/uL (1.0-4.3); LYMPH % 29.4 % (20.0-40.0); MEAN CORPUSCULAR HEMOGLOBIN 28.5 pg (27.0-31.0); MEAN CORPUSCULAR HGB CONC 32.3 g/dL (33.0-37.0); MEAN PLATELET VOLUME 9.2 fL (7.2-11.7); MONO # 0.7 K/uL (0.0-0.8); MONO % 11.6 % (0.0-10.0); NEUT # 3.6 K/uL (1.8-7.0); NEUT % 57.6 % (50.0-75.0); RBC 4.17 Mil/uL (3.80-5.20); RED CELL DISTRIBUTION WIDTH 13.9 % (11.5-14.5); WHITE BLOOD COUNT 6.2 K/uL (4.8-10.8)
[2018-07-17 12:01] LABS: MEAN CELL VOLUME 88.3 fL (81.0-99.0)
[2018-07-17 12:22] LABS: ALB/GLOB RATIO 1.4 (1.0-2.1); ALBUMIN 4.2 g/dL (3.5-5.0); ALT/SGPT 22 U/L (9-52); AST/SGOT 39 U/L (14-36); BLOOD UREA NITROGEN 10 mg/dL (7-17); CALCIUM 9.2 mg/dl (8.6-10.4); GFR NON-AFRICAN AMERICAN > 60
[2018-07-17 12:24] LABS: SQUAMOUS EPITHIAL 13 /hpf (0-5); URINE BACTERIA RARE (<OCC); URINE BILIRUBIN NEGATIVE (NEGATIVE); URINE BLOOD NEGATIVE (NEGATIVE); URINE CLARITY Hazy (Clear); URINE COLOR Yellow (YELLOW); URINE GLUCOSE (UA) NORMAL (Normal); URINE LEUKOCYTE ESTERASE NEG Leu/uL (Negative); URINE PROTEIN NEGATIVE (NEGATIVE)
--- NOTE | 2018-07-17 12:26 | C.PDOC ---
History Of Present Illness Patient is a 32 year old female who presents to the ED requesting detox from heroin and Xanax. Patient states that she last used yesterday with 20 bags of heroin and 6mg of Xanax. She also notes a toothache. She denies any other alco hol or drug use, SI/HI, hallucinations, CP, SOB, falls, trauma, or medical complaints at the present moment. Time Seen by Provider: 07/17/18 10:58 Chief Complaint (Nursing): Substance Abuse History Per: Patient History/Exam Limitations: no limitations Onset/Duration Of Symptoms: Days (1) Current Symptoms Are (Timing): Still Present Suicide/Self Injury Attempted (Context): None Associated Symptoms: denies: Suicidal Thoughts, Suicidal Plan Involuntary Hold By: None Recent travel outside of the [place]: No Additional History Per: Patient Past Medical History Reviewed: Historical Data, Nursing Documentation, Vital Signs - Medical History PMH: Anxiety, Bipolar Disorder, Depression Denies: Asthma, Bronchitis, Diabetes, Hepatitis, HIV, HTN, Chronic Kidney Disease, Seizures, Sexually Transmitted Disease Surgical History: No Surg Hx - [facility] Procedures DETOXIFICATION SERVICES FOR SUBSTANCE ABUSE TREATMENT (03/14/18) GROUP BIOMETRIC SCREENER FOR SUBSTANCE ABUSE TREATMENT, PSYCHOEDUCATION (03/14/18) GROUP BIOMETRIC SCREENER FOR SUBSTANCE ABUSE, COGNITIVE BEHAVIORAL (03/14/18) GROUP PSYCHOTHERAPY (03/14/18) INDIV PSYCHOTHERAPY FOR SUBSTANCE ABUSE TREATMENT, SUPPORT (03/14/18) INDIV PSYCHOTHERAPY FOR SUBSTANCE ABUSE, COGNITIV BEHAVIORAL (03/14/18) INDIV PSYCHOTHERAPY FOR SUBSTANCE ABUSE, PSYCHOEDUCATION (03/14/18) INDIVIDUAL PSYCHOTHERAPY, COGNITIVE-BEHAVIORAL (03/14/18) INDIVIDUAL PSYCHOTHERAPY, SUPPORTIVE (03/14/18) MEDICATION MANAGEMENT (11/13/17) MEDS MGMT FOR SUBSTANCE ABUSE TREATMENT, ANTABUSE (11/13/17) Family History: States: Unknown Family Hx - Social History Hx Tobacco Use: Yes Hx Alcohol Use: Yes Hx Substance Use: Yes - Immunization History Hx Tetanus Toxoid Vaccination: No Hx Influenza Vaccination: No Hx Pneumococcal Vaccination: No Review Of Systems Cardiovascular: Negative for: Chest Pain Respiratory: Negative for: Shortness of Breath Psych: Negative for: Suicidal ideation, Other (homicidal ideation ) Physical Exam - Physical Exam Appears: Non-toxic, No Acute Distress, Other (mild drowsiness ) Skin: Normal Color, Warm, Dry Head: Atraumatic, Normacephalic Oral Mucosa: Moist Neck: Normal ROM, Supple Chest: Symmetrical, No Deformity Cardiovascular: Rhythm Regular, No Murmur Respiratory: Normal Breath Sounds, No Rales, No Rhonchi, No Wheezing Gastrointestinal/Abdominal: Soft, No Tenderness, No Guarding, No Rebound Extremity: Normal ROM Neurological/Psych: Oriented x3, Normal Speech, Normal Cognition ED Course And Treatment - Laboratory Results Result Diagrams: 07/17/18 11:44 07/17/18 11:44 Medical Decision Making Medical Decision Making: Bloodwork and Urinalysis ordered. Tylenol 650mg PO given. Patient medically cleared and admitted to detox. Disposition - Disposition Disposition: HOSPITALIZED Disposition Time: 13:00 Condition: GOOD - Clinical Impression Clinical Impression: Drug abuse - Scribe Statement The provider has reviewed the documentation as recorded by the Yusuf Palomino All medical record entries made by the Javieribsienna were at my direction and personally dictated by me. I have reviewed the chart and agree that the record accurately reflects my personal performance of the history, physical exam, medical decision making, and the department course for this patient. I have also personally directed, reviewed, and agree with the discharge instructions and disposition.
[2018-07-17 12:46] LABS: BARBITURATES, UR NEGATIVE (NEGATIVE); PHENCYCLIDINE, UR NEGATIVE (NEGATIVE)
[2018-07-17 13:09] LABS: BENZODIAZEPINES, UR POSITIVE (NEGATIVE); OPIATES, UR POSITIVE (NEGATIVE)
[2018-07-17] MEDS ORDERED: Aluminum Hydroxide/Magnesium Hydroxide Susp (30 mL) PO PRN (13:15)
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
--- NOTE | 2018-07-17 14:53 | PCM.BM ---
<Nusrat Campbell - Last Filed: 07/17/18 14:57> Treatment Plan Problems - Problems identified on initial assessmt Knowledge deficit Substance use Date Initiated: 07/17/18 Time Initiated: 13:30 Assessment reference: NA Status: Active Ineffective coping Date Initiated: 07/17/18 Time Initiated: 13:35 Assessment reference: NA Status: Active Defensive coping Date Initiated: 07/17/18 Time Initiated: 13:35 Assessment reference: NA Status: Active Treatment assets and liabiliti Patient Assests: cooperative, insightful, self-reliant, ADL independent, nego tiates basic needs, cognitively intact Patient Liabilities: relationship conflicts, substance abuse - Milieu Protocol Maintain good personal hygiene: every shift Encourage regular showers, every shift Remind patient to perform daily oral care, every shift Assist patient to perform ADL's Conduct patient checks and document Observation sheet: Q15 minutes Maintain personal safety: every shift Educate patient to report safety concerns to staff, every shift Monitor environment for contraband/sharps Medication safety: Monitor for expected outcome, potential side effects: every shift, Assess barriers to learning: every shift, Assess readiness for medication education: every shift Milieu Narrative: Taper with librium Methadone taper gabapenitn for augmantation, anxiety Lexapro for panic d/o Inderal for anxiety Seroquel for insomnia and bipolar disorder As needed medications All risks, benefits and alternatives of the meds discussed, and the pt agreed and understood. Attend groups and activities Supportive therapy and psychoeducation [place] for abstinence CBT for relapse prevention Encourage MAT Refer to rehab or IOP, and self-help groups Smoking cessation with [place] Nicotine patch if needed 34 min Discharge/Continuing Care - Treatment Team Participation Patient/Family/SO Statement: Taper with librium Methadone taper gabapenitn for augmantation, anxiety Lexapro for panic d/o Inderal for anxiety Seroquel for insomnia and bipolar disorder As needed medications All risks, benefits and alternatives of the meds discussed, and the pt agreed and understood. Attend groups and activities Supportive therapy and psychoeducation [place] for abstinence CBT for relapse prevention Encourage MAT Refer to rehab or IOP, and self-help groups Smoking cessation with [place] Nicotine patch if needed 34 min <Juaquin Conner - Last Filed: 07/18/18 15:09> - Diagnosis (1) Opioid dependence Status: Acute Interventions: 07/18/18 15:09 * Assess 7x/week regarding severity of withdrawal * Educate regarding risks, benefits, side effects and alternatives of medications * Use Motivational Interviewing for abstinence * Use CBT for relapse prevention * Medication management for withdrawal symptoms * Encourage medication assisted treatment * (2) Sedative, hypnotic or anxiolytic use disorder, severe, dependence Status: Acute Interventions: 07/18/18 15:09 * Assess 7x/week regarding severity of withdrawal * Educate regarding risks, benefits, side effects and alternatives of medications * Use Motivational Interviewing for abstinence * Use CBT for relapse prevention * Medication management for withdrawal symptoms * Encourage medication assisted treatment * <Akosua Yanez - Last Filed: 07/21/18 14:51> Family Contact Family involvement: No known Family/SO - Goals for Treatment Patient goals for treatment: Complete detox and transition to MAT for methadone. Discharge/Continuing Care - Education Needs Education Needs: Patient Medication, Patient Diagnosis/Disease Process, Patient Coping Skills, Patient Anger Management skills, Patient Placement options, Patient Community resources - Discharge Discharge Criteria: No longer exhibiting s/s of withdrawal, Reduction of target symptoms Discharge to:: Home - Treatment Team Participation Patient/Family/SO Statement: 07/21/18 14:51 "I need to go on methadone. I know where I wanna go..." Discussed with Family/SO: No Was Patient/Family/SO present at Treatment Team Meeting: Yes
--- NOTE | 2018-07-18 07:58 | PCM.PYCHPN ---
Psychiatric Progress Note - Psychiatric Progress Note Patient seen today, length of contact: 15 min Patient Chief Complaint: I am still withdrawing.' Problems Identified/Issues Discussed: Patient was seen and evaluated, chart reviewed and discussed the staff. Patient reports withdrawal symptoms from heroin and Xanax including nausea, vomiting, cramps, abdominal pain, shakes, sweating and joint pain. She reports irritable mood but denies any feelings of hopelessness and helplessness. She denies any auditory or visual hallucinations. She is taking medication but denies any side effects. She needs to stay longer for further stabilization Supportive therapy was given. Medication Change: Yes Medical Record Reviewed: Yes Mental Status Examination - Cognitive Function Orientation: Person, Place, Situation, Time Memory: Intact Attention: WNL Concentration: Poor Association: WNL Fund of Knowledge: Poor - Mood Mood: Depressed, Anxious - Affect Affect: Broad - Speech Speech: Appropriate - Formal Thought Process Formal Thought Process: No Impairment - Suicidal Ideation Suicidal Ideation: No - Homicidal Ideation Homicidal Ideation: No Goal/Treatment Plan - Goal/Treatment Plan Need for Continued Stay: Discharge may exacerbated symptoms Progress Toward Problem(s) and Goals/Treatment Plan: Sedative, hypnotic or anxiolytic withdrawal Sedative, hypnotic or anxiolytic use disorder, severe Opioid use disorder, severe Opioid withdrawal Tobacco use disorder, severe PTSD Panic d/o JERRY Taper with librium Methadone taper gabapenitn for augmantation, anxiety Lexapro for panic d/o Inderal for anxiety Seroquel for insomnia and bipolar disorder As needed medications All risks, benefits and alternatives of the meds discussed, and the pt agreed and understood. Attend groups and activities Supportive therapy and psychoeducation [place] for abstinence CBT for relapse prevention Encourage MAT Refer to rehab or IOP, and self-help groups Smoking cessation with [place] Nicotine patch if needed - Smoking Cessation Smoking Cessation Initiated: No
[2018-07-18] MEDS: Multiple Vitamins Tab PO SCH (10:11)
[2018-07-19] MEDS: Multiple Vitamins Tab PO SCH (09:48)
--- NOTE | 2018-07-19 20:34 | PCM.PYCHPN ---
Psychiatric Progress Note - Psychiatric Progress Note Patient seen today, length of contact: 15 min Patient Chief Complaint: I need more methadone.' Problems Identified/Issues Discussed: Patient was seen and evaluated, chart reviewed and discussed the staff. Per staff she remained irritable and agitated yesterday and she was asking for more methadone as she was withdrawing badly. Patient reports withdrawal symptoms including nausea, vomiting, cramps, abdominal pain, shakes, sweating and joint pain. She denies any feelings of hopelessness and helplessness. She denies any auditory or visual hallucinations. She is taking medication but denies any side effects. She needs to stay longer for further stabilization Supportive therapy was given. Medication Change: Yes Medical Record Reviewed: Yes Mental Status Examination - Cognitive Function Orientation: Person, Place, Situation, Time Memory: Intact Attention: WNL Concentration: Poor Association: WNL Fund of Knowledge: Poor - Mood Mood: Depressed, Anxious - Affect Affect: Broad - Speech Speech: Appropriate - Formal Thought Process Formal Thought Process: No Impairment - Suicidal Ideation Suicidal Ideation: No - Homicidal Ideation Homicidal Ideation: No Goal/Treatment Plan - Goal/Treatment Plan Need for Continued Stay: Discharge may exacerbated symptoms Progress Toward Problem(s) and Goals/Treatment Plan: Sedative, hypnotic or anxiolytic withdrawal Sedative, hypnotic or anxiolytic use disorder, severe Opioid use disorder, severe Opioid withdrawal Tobacco use disorder, severe PTSD Panic d/o JERRY Taper with librium Methadone taper gabapenitn for augmantation, anxiety Lexapro for panic d/o Inderal for anxiety Seroquel for insomnia and bipolar disorder As needed medications All risks, benefits and alternatives of the meds discussed, and the pt agreed and understood. Attend groups and activities Supportive therapy and psychoeducation [place] for abstinence CBT for relapse prevention Encourage MAT Refer to rehab or IOP, and self-help groups Smoking cessation with [place] Nicotine patch if needed
[2018-07-20] MEDS: Multiple Vitamins Tab PO SCH (09:13)
[2018-07-20] MEDS: Albuterol HFA 90 mcg/actuation (8 g) INH PRN (11:17)
--- NOTE | 2018-07-20 14:58 | PCM.PYCHPN ---
Psychiatric Progress Note - Psychiatric Progress Note Patient seen today, length of contact: 17 min Patient Chief Complaint: "I'm sick" Problems Identified/Issues Discussed: The pt is seen, chart reviewed, case discussed with staff. The pt is compliant with medications and reports no side-effects. Symptoms are improving but needs more time to stabilize. Pt attends groups and activities. Support given, psycho-education provided. After care discussed. Medication Change: Yes (add atarax, detox changes daily) Medical Record Reviewed: Yes Mental Status Examination - Cognitive Function Orientation: Person, Place, Situation, Time Memory: Intact Attention: WNL Concentration: Poor Association: WNL Fund of Knowledge: Poor - Mood Mood: Depressed, Anxious - Affect Affect: Broad - Speech Speech: Appropriate - Formal Thought Process Formal Thought Process: No Impairment - Suicidal Ideation Suicidal Ideation: No - Homicidal Ideation Homicidal Ideation: No Goal/Treatment Plan - Goal/Treatment Plan Need for Continued Stay: Discharge may exacerbated symptoms, Severe functional impairment Progress Toward Problem(s) and Goals/Treatment Plan: Taper with librium Methadone taper gabapenitn for augmantation, anxiety Lexapro for panic d/o Inderal for anxiety Seroquel for insomnia and bipolar disorder As needed medications All risks, benefits and alternatives of the meds discussed, and the pt agreed and understood. Attend groups and activities Supportive therapy and psychoeducation [place] for abstinence CBT for relapse prevention Encourage MAT Refer to rehab or IOP, and self-help groups Smoking cessation with [place] Nicotine patch if needed
[2018-07-21] MEDS: Albuterol HFA 90 mcg/actuation (8 g) INH PRN (07:33)
[2018-07-21] MEDS: Multiple Vitamins Tab PO SCH (09:28)
--- NOTE | 2018-07-21 13:39 | PCM.PYCHPN ---
Psychiatric Progress Note - Psychiatric Progress Note Patient seen today, length of contact: 15 min Patient Chief Complaint: "I'm doing better, but still not quite there yet" Problems Identified/Issues Discussed: The pt is seen, chart reviewed, case discussed with staff. Pt states she still feels down. Pt reports she is tired but has no other complaints. Support and psychoeducation given, CBT and [place] used briefly No new symptoms reported, improving slowly and needs more time No SEs from medications, risks discussed. After care discussed. Medication Change: Yes (detox changes daily, seroquel adjusted) Medical Record Reviewed: Yes Mental Status Examination - Cognitive Function Orientation: Person, Place, Situation, Time Memory: Intact Attention: WNL Concentration: Poor Association: WNL Fund of Knowledge: Poor - Mood Mood: Depressed, Anxious - Affect Affect: Broad - Speech Speech: Appropriate - Formal Thought Process Formal Thought Process: No Impairment - Suicidal Ideation Suicidal Ideation: No - Homicidal Ideation Homicidal Ideation: No Goal/Treatment Plan - Goal/Treatment Plan Need for Continued Stay: Discharge may exacerbated symptoms, Severe functional impairment Progress Toward Problem(s) and Goals/Treatment Plan: Taper with librium Methadone taper gabapenitn for augmantation, anxiety Lexapro for panic d/o Inderal for anxiety Seroquel for insomnia and bipolar disorder As needed medications All risks, benefits and alternatives of the meds discussed, and the pt agreed and understood. Attend groups and activities Supportive therapy and psychoeducation [place] for abstinence CBT for relapse prevention Encourage MAT Refer to rehab or IOP, and self-help groups Smoking cessation with [place] Nicotine patch if needed
[2018-07-22] MEDS: Multiple Vitamins Tab PO SCH (09:12)
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
[2018-07-22 10:25] VITALS: BP 122/86; PULSE 84; RESP 19; TEMP 97.8; O2SAT 100
== END 2018-07-22 10:30 | disposition home or self-care (01) | DRG 772 ==
LOC: C.ER 10:44 → C.7D 13:01
PROVIDERS: ADMIT Psychiatry & Neurology Psychiatry; ATTEND Psychiatry & Neurology Psychiatry
PROC: HZ2ZZZZ Detoxification Services for Substance Abuse Treatment (ICD-10-PCS; principal; 2018-07-17)
PROC: HZ42ZZZ Group Counseling for Substance Abuse Treatment, Cognitive-Behavioral (ICD-10-PCS; 2018-07-17)
PROC: HZ52ZZZ Individual Psychotherapy for Substance Abuse Treatment, Cognitive-Behavioral (ICD-10-PCS; 2018-07-17)
PROC: HZ59ZZZ Individual Psychotherapy for Substance Abuse Treatment, Supportive (ICD-10-PCS; 2018-07-17)
PROC: HZ56ZZZ Individual Psychotherapy for Substance Abuse Treatment, Psychoeducation (ICD-10-PCS; 2018-07-17)
PROC: HZ46ZZZ Group Counseling for Substance Abuse Treatment, Psychoeducation (ICD-10-PCS; 2018-07-17)
PROC: GZHZZZZ Group Psychotherapy (ICD-10-PCS; 2018-07-17)
PROC: GZ58ZZZ Individual Psychotherapy, Cognitive-Behavioral (ICD-10-PCS; 2018-07-17)
PROC: GZ56ZZZ Individual Psychotherapy, Supportive (ICD-10-PCS; 2018-07-17)
DX: F11.23 Opioid dependence with withdrawal (principal); F31.30 Bipolar disorder, current episode depressed, mild or moderate severity, unspecified; F13.239 Sedative, hypnotic or anxiolytic dependence with withdrawal, unspecified; F17.210 Nicotine dependence, cigarettes, uncomplicated; F43.10 Post-traumatic stress disorder, unspecified; G40.909 Epilepsy, unspecified, not intractable, without status epilepticus; Z91.14 Patient's other noncompliance with medication regimen; K08.89 Other specified disorders of teeth and supporting structures; G47.00 Insomnia, unspecified; F41.1 Generalized anxiety disorder; Z88.0 Allergy status to penicillin